=== PATIENT | female | born 2000 | race Caucasian/White ===

== ENCOUNTER 2018-07-07 14:26 | Emergency (ER) | payer OTHER ==
[2018-07-07] MEDS: TRIMETHOPRIM/SULFAMETHOX (DS) TAB PO (15:15)
[2018-07-07] MEDS: IBUPROFEN 600 MG TAB PO (15:15)
== END 2018-07-07 15:50 | disposition home or self-care (01) ==
LOC: FTE 15:50
DX: L02.211 Cutaneous abscess of abdominal wall (principal)
CPT/HCPCS: 99283; Z7502

== ENCOUNTER 2018-07-11 20:33 | Emergency (ER) | payer OTHER ==
[2018-07-11] MEDS: HYDROCODONE/APAP (5/325) TAB PO (23:49)
[2018-07-11] MEDS: CEFTRIAXONE 500 MG INJ IM (23:49)
== END 2018-07-12 00:07 | disposition home or self-care (01) ==
LOC: FTE 07-12 00:07
DX: L02.416 Cutaneous abscess of left lower limb (principal); L03.116 Cellulitis of left lower limb
CPT/HCPCS: 96372; 99284-25